=== PATIENT | female | born 1930 | race Caucasian/White ===

== ENCOUNTER 2016-11-21 19:41 | Emergency (ER) | payer OTHER, MEDICARE ==
[~2016-11-21] VITALS: Ht 157.5 cm; Wt 87.1 kg
[~2016-11-21 19:41] MED LIST: ALBUTEROL2.5 MG/31 INH; AMITRIPTYLINE H25 M2 PO; APAP500 PO; COL-RITE50 MG PO; COUMADIN 5 MG TA5 M1 PO; DIOVAN160 MG PO; FAMOTIDINE20 MG; K-DUR 20 MEQ T20 MEQ; K-DUR 20 MEQ T20 MEQ PO; KLOR-CON 10 ER10 MEQ PO; LASIX 40 MG TAB40 M1 PO; LEVAQUIN 500 M500 M2 PO; LEVOTHROID50 MCG PO; LIDODERM 5%1 PATC1 TOP; LOPRESSOR 50 MG50 M1 PO; MELATONIN5 M1 PO; NEXIUM40 MG PO; TRAMADOL 50 MG50 MG PO; VITAMIN D-32000 UNIT PO; VITAMIN D31000 UNI2 PO
[2016-11-21] MEDS ORDERED: LOPRESSOR50 PO (19:54)
[2016-11-21] MEDS ORDERED: COLACE100 MG PO (19:55)
== END 2016-11-21 22:24 | disposition home or self-care (01) ==
LOC: ER 19:41
DX: M25.552 Pain in left hip (principal); J44.9 Chronic obstructive pulmonary disease, unspecified; F41.9 Anxiety disorder, unspecified; I10 Essential (primary) hypertension; Z90.710 Acquired absence of both cervix and uterus; Z98.890 Other specified postprocedural states; Z88.1 Allergy status to other antibiotic agents; Z88.5 Allergy status to narcotic agent; Z88.8 Allergy status to other drugs, medicaments and biological substances; F10.99 Alcohol use, unspecified with unspecified alcohol-induced disorder

== ENCOUNTER → 2017-04-22 | Outpatient (CLI) | payer OTHER, MEDICARE ==
[~2017-04-22] MED LIST changes: +COLACE100 MG PO; +LOPRESSOR50 PO
== END ==
LOC: CAT 09:37
DX: R91.8 Other nonspecific abnormal finding of lung field (principal)

== ENCOUNTER 2017-05-24 12:31 | Inpatient (IN) | payer OTHER, MEDICARE ==
[~2017-05-24] VITALS: Ht 157.5 cm; Wt 92.8 kg
--- NOTE | ~2017-05-24 | D ---
[facility] [place] [address] DISCHARGE SUMMARY Name: ARTEM SHEFFIELD Room #: 208-P [facility] IN M.R.#: [id number] Admission: 05/24/17 Attend Phys: Chano Rome Discharge: 06/04/17 Date of : 28 Report #: [id number] THIS REPORT FOR: //name// CC: Dane Ricardo Maixmino FINAL DIAGNOSES: 1. Pulmonary hypertension. 2. Atrial fibrillation. 3. Metabolic encephalopathy. 4. Chronic anticoagulation. 5. Urinary tract infection. HOSPITAL COURSE: The patient was admitted with shortness of breath. She has known pulmonary hypertension and she required the use of BiPAP and high-flow oxygen due to severe hypoxia. Pulmonary and cardiology evaluated her. Ultimately, the finding was that she had a right to left intracardiac shunt causing severe hypoxia. Given her advanced age and the comorbidities, she is not a surgical candidate, therefore, she was treated symptomatically. She had a minor gout flare of the right foot and steroids were added. Urine culture grew bacteria and antibiotics were ordered. At one point, palliative care considered; however, her condition seemed to stabilize and slightly improved some the last 3 hospital days, she was more awake and alert, on oxygen around 10-15 liters nasal cannula with sats in the mid to upper 80s. She was getting out of bed, working with therapy, talking and visiting with her family and eating better. PHYSICAL EXAMINATION: GENERAL: On the day of discharge, she was awake and alert. VITAL SIGNS: Stable. LUNGS: Clear. HEART: Regular. ABDOMEN: Soft, normoactive bowel sounds. EXTREMITIES: No edema. DISPOSITION: I prepared all the discharge orders, prescriptions, and plans, discussed with the family and social research assistant and made arrangements for her transfer to [facility] facility for ongoing pulmonary care. She will continue do not resuscitate status and overall is a poor prognosis due to her underlying condition. <ELECTRONICALLY SIGNED> By: Reid Abebe MD 06/06/17 0839 1240 [id number] Reid Abebe MD /nt
--- NOTE | ~2017-05-24 | 2DMMODE ---
[facility] [address] [place] [address] 2 D/M-MODE ECHOCARDIOGRAM Name: ARTEM SHEFFIELD Room #: 302-P ADM IN M.R.#: [id number] Admission: 05/24/17 Attend Phys: Dane Willis Discharge: Date of : 28 Date of Service: 05/26/17 1307 Report #: [id number] THIS REPORT FOR: //name// APPROVED REPORT Study performed: 05/26/2017 10:45:26 EXAM: Comprehensive 2D, Doppler, and color-flow Echocardiogram Patient Location: Bedside Room #: 302 Other Information Study Quality: Adequate Technically limited study due to body habitus. Indications COPD Pulmonary Hypertension Atrial Fibrillation Hypertension/HDD Echo Enhancing Agent Indication: Rule out Shunt Agent(s) / Amount(s) Used: Agitated Saline 6 cc 2D Dimensions RVDd: 50.47 mm LVEF(%): 58.47 (>50%) IVSd: 11.32 (7-11mm) LVOT Diam: 17.53 (18-24mm) LVDd: 42.61 mm PWd: 11.78 (7-11mm) Ascending Ao: 25.05 (22-36mm) LVDs: 29.56 (25-40mm) Aortic Root: 28.87 mm IVC: 29.00 mm Murphy's LVEF: 58.47 % Volumes Left Atrial Volume (Systole) Single Plane 4CH: 74.19 mL Single Plane 2CH: 54.06 mL LA ESV Index: 35.00 mL/m2 Aortic Valve AoV Peak Roge.: 1.16 m/s AO Peak Gr.: 5.39 mmHg LVOT Max P.72 mmHg LVOT Max V: 0.96 m/s [facility] [place] [address] [place] [address] 2 D/M-MODE ECHOCARDIOGRAM Name: ARTEM SHEFFIELD Room #: 302-[facility] IN ..#: [id number] Admission: 05/24/17 Attend Phys: Dane Willis Discharge: Date of : 28 Date of Service: 05/26/17 1307 Report #: [id number] JUAN Vmax: 2.00 cm2 Mitral Valve MV Decel. Time: 192.89 ms MV E Max Roge.: 1.09 m/s IVRT: 65.74 ms Pulmonary Valve PV Peak Roge.: 0.73 m/s PV Peak Gr.: 2.11 mmHg Tricuspid Valve TR Peak Roge.: 2.50 m/s RAP Estimate: 15.00 mmHg TR Peak Gr.: 25.04 mmHg Left Ventricle The left ventricle is normal size. There is normal LV segmental wall motion. There is normal left ventricular wall thickness. The overall left ventricular systolic function appears normal. LVEF is 55-60%. This study is not technically sufficient to allow evaluation of the LV diastolic function due to atrial fibrillation. Right Ventricle Right ventricle is dilated. The right ventricular systolic function is normal. Atria Left atrium is dilated. Contrast bubble injection consistent with right to left shunting. Right atrium is severely dilated. Aortic Valve The aortic valve is mildly sclerotic. Mild moderate aortic regurgitation. There is no aortic valvular stenosis. Mitral Valve Mild mitral annular calcification Trace mitral regurgitation. No evidence of mitral valve stenosis. Tricuspid Valve The tricuspid valve is normal in structure. Severe tricuspid regurgitation. Pulmonic Valve Pulmonic valve is not well visualized. Great Vessels The aortic root is normal in size. IVC is dilated and collapses [facility] [address] [place] [address] 2 D/M-MODE ECHOCARDIOGRAM Name: ARTEM SHEFFIELD Room #: 302-P ADM IN M.R.#: [id number] Admission: 05/24/17 Attend Phys: Dane Willis Discharge: Date of : 28 Date of Service: 05/26/17 1307 Report #: [id number] <50% with inspiration. Pericardium There is no pericardial effusion. <Conclusion> The overall left ventricular systolic function appears normal. LVEF is 55-60%. Normal LV segmental wall motion. Left atrium is dilated. Right atrium is severely dilated. Right ventricle is dilated. The aortic valve is mildly sclerotic. No aortic valvular stenosis. Mild-moderate regurgitation. Mild mitral annular calcification Trace mitral regurgitation. Severe tricuspid regurgitation. There is no pericardial effusion. Pulmonary artery pressure of 35mmHg Contrast bubble injection consistent with right to left shunting. <ELECTRONICALLY SIGNED> By: Ga Benavidez MD, [facility] 05/26/17 1307 06 06 Ga Benavidez MD, FAC /INF
--- NOTE | ~2017-05-24 | EKG ---
[address] [address] ELECTROCARDIOGRAM REPORT Name: ARTEM SHEFFIELD Room #: 302-P ADM IN M.R.#: [id number] Admission: 05/24/17 Attend Phys: Chano Rome Discharge: Date of : 28 Report #: [id number] THIS REPORT FOR: //name// 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
[2017-05-24 12:32] VITALS: BP 114/62
[2017-05-24 13:35] LABS: ABSOLUTE NEUTROPHILS 2.7 thou/uL (1.4-8.2); BASOPHILS 2.4 % (0.0-2.0); HEMATOCRIT 46.5 % (37.0-47.0); LYMPHOCYTES 31.1 % (24.0-44.0); MCH 36.2 pg (26.0-34.0); MCHC 34.4 g/dL (28.0-37.0); MCV 105.4 fL (80.0-100.0); MONOCYTES 7.6 % (1.0-8.0); PLATELET COUNT 200 thou/uL (150-400); POLYS 55.9 % (36.0-66.0); RBC 4.41 mil/uL (4.20-5.00); RDW 15.4 % (10.5-14.5); WBC 4.9 thou/uL (4.0-11.0)
[2017-05-24 13:37] LABS: MANUAL DIFF NO
[2017-05-24 13:45] LABS: ANION GAP 9 mmol/L (7-16); BUN 22 mg/dL (7-18); CALCIUM 9.1 mg/dL (8.5-10.1); CHLORIDE 105 mmol/L (98-107); CO2 25 mmol/L (21-32); CREATININE 1.5 mg/dL (0.6-1.0); GLUCOSE 144 mg/dL (74-106); POTASSIUM 3.9 mmol/L (3.5-5.1); SODIUM 139 mmol/L (136-145)
[2017-05-24 13:49] LABS: ABG SAMPLE TYPE ARTERIAL; BE(vivo) -1.2 mmol/L (-2 to +3); HCO3 21.9 mmol/L (22.0-26.0); LACTATE 2.74 mmol/L (0.5-2.0); PCO2 32.8 mmHg (35.0-45.0); PO2 51.9 mmHg (80.0-100.0); STICK SITE R.BRACHIAL; pH 7.443 (7.360-7.450); sO2 88.5 % (92.0-98.0); tCO2 22.9 mmol/L (24.0-30.0)
[2017-05-24 13:54] LABS: INR 2.4; PROTIME 24.3 Seconds (9.3-11.4)
[2017-05-24] MEDS ORDERED: LEVOTHYROXINE0.05 MG PO (13:54)
[2017-05-24] MEDS ORDERED: DONEPEZIL HCL 55 M1 PO (13:55)
[2017-05-24 13:56] LABS: ALBUMIN 3.7 g/dL (3.4-5.0); ALKALINE PHOSPHATASE 176 U/L (46-116); NT-PRO BRAIN NAT PEPTIDE 865 pg/mL (<300); SGOT 21 U/L (15-37); SGPT 16 U/L (30-65); TOTAL BILIRUBIN 1.2 mg/dL (<0.1-1.0); TOTAL PROTEIN 7.2 g/dL (6.4-8.2); TROPONIN-I < 0.04 ng/mL (<0.04-0.07)
[2017-05-24] MEDS ORDERED: DIOVAN 80 MG TA80 M1 PO (13:56)
[2017-05-24 16:20] VITALS: BP 156/87
[2017-05-24 21:39] VITALS: BP 159/80
[2017-05-25 03:42] VITALS: BP 142/80
[2017-05-25 07:17] VITALS: BP 149/84
[2017-05-25 15:39] VITALS: BP 129/77
[2017-05-25 19:13] VITALS: BP 154/76
[2017-05-26 04:31] VITALS: BP 131/75
[2017-05-26 05:15] LABS: HEMATOCRIT 45.1 % (37.0-47.0); HEMOGLOBIN 15.6 gm/dL (12.0-15.0); MCH 36.2 pg (26.0-34.0); MCHC 34.5 g/dL (28.0-37.0); RBC 4.3 mil/uL (4.20-5.00); RDW 15.9 % (10.5-14.5); WBC 5.8 thou/uL (4.0-11.0)
[2017-05-26 05:24] LABS: CALCIUM 8.9 mg/dL (8.5-10.1); CREATININE 1.2 mg/dL (0.6-1.0); POTASSIUM 4.4 mmol/L (3.5-5.1)
[2017-05-26 07:20] LABS: ABG SAMPLE TYPE ARTERIAL; HCO3 23.3 mmol/L (22.0-26.0); LACTATE 1.69 mmol/L (0.5-2.0); O2(CT) 19.4 mL/dL (15.0-23.0); O2Hb 86.6 % (92.0-98.0); PCO2 37.9 mmHg (35.0-45.0); pH 7.407 (7.360-7.450); sO2 88.4 % (92.0-98.0); tCO2 24.5 mmol/L (24.0-30.0)
[2017-05-26 07:21] LABS: PO2 53.9 mmHg (80.0-100.0); STICK SITE R.RADIAL
[2017-05-26 07:43] VITALS: BP 131/68
[2017-05-26 14:35] LABS: INR 2.5; PROTIME 25.3 Seconds (9.3-11.4)
[2017-05-26 17:47] VITALS: BP 122/58
[2017-05-26 20:00] VITALS: BP 118/61
[2017-05-27] VITALS (18 sets, daily range): BP systolic 104–156; BP diastolic 58–104
[2017-05-27 04:34] LABS: HEMATOCRIT 46.1 % (37.0-47.0); HEMOGLOBIN 15.8 gm/dL (12.0-15.0); MCH 36.2 pg (26.0-34.0); MCHC 34.3 g/dL (28.0-37.0); MCV 105.6 fL (80.0-100.0); RBC 4.37 mil/uL (4.20-5.00); RDW 15.4 % (10.5-14.5); WBC 5.4 thou/uL (4.0-11.0)
[2017-05-27 04:55] LABS: CALCIUM 9.3 mg/dL (8.5-10.1); CREATININE 1.3 mg/dL (0.6-1.0); POTASSIUM 4.3 mmol/L (3.5-5.1)
[2017-05-27 05:29] LABS: FOLIC ACID 6.8 ng/mL (8.6-58.9); TSH 4.411 uIU/mL (0.358-3.740)
[2017-05-27 10:57] LABS: INR 2.5; PROTIME 25.4 Seconds (9.3-11.4)
[2017-05-27 11:46] LABS: URINE BILIRUBIN NEGATIVE (Negative); URINE BLOOD 1+ (Negative); URINE COLOR YELLOW; URINE GLUCOSE-RANDOM* NEGATIVE (Negative); URINE KETONES NEGATIVE (Negative); URINE LEUKOCYTES-REFLEX 1+ (Negative); URINE PROTEIN (DIPSTICK) NEGATIVE (Negative); URINE SPECIFIC GRAVITY <= 1.005 (1.003-1.035); URINE UROBILINOGEN 0.2 E.U./dl (0.2-1.0)
[2017-05-27 12:19] LABS: CASTS None Seen /LPF (None Seen); CRYSTALS None Seen /LPF (None Seen); SQUAMOUS None Seen /LPF (0-3); URINE WBC-REFLEX 6-15 Few /HPF (0-5)
[2017-05-27 12:22] LABS: URINE RBC None Seen /HPF (0-2)
[2017-05-28] VITALS (24 sets, daily range): BP systolic 105–146; BP diastolic 54–95
[2017-05-29] VITALS (11 sets, daily range): BP systolic 106–150; BP diastolic 59–102
[2017-05-29 04:49] LABS: ABSOLUTE NEUTROPHILS 5.2 thou/uL (1.4-8.2); BASOPHILS 1.1 % (0.0-2.0); EOSINOPHILS 2.2 % (0.0-3.0); HEMATOCRIT 48.8 % (37.0-47.0); HEMOGLOBIN 16.5 gm/dL (12.0-15.0); LYMPHOCYTES 12.5 % (24.0-44.0); MCH 35.6 pg (26.0-34.0); MCHC 33.7 g/dL (28.0-37.0); MCV 105.6 fL (80.0-100.0); MONOCYTES 10.4 % (1.0-8.0); PLATELET COUNT 221 thou/uL (150-400); POLYS 73.8 % (36.0-66.0); RBC 4.63 mil/uL (4.20-5.00); RDW 15.5 % (10.5-14.5); WBC 7.1 thou/uL (4.0-11.0)
[2017-05-29 04:54] LABS: MANUAL DIFF NO
[2017-05-29 04:58] LABS: INR 2.1; PROTIME 21.2 Seconds (9.3-11.4)
[2017-05-29 05:01] LABS: ALBUMIN 3.2 g/dL (3.4-5.0); CALCIUM 9.2 mg/dL (8.5-10.1); CREATININE 1.3 mg/dL (0.6-1.0); MAGNESIUM 1.7 mg/dL (1.8-2.4); POTASSIUM 4.3 mmol/L (3.5-5.1); TOTAL BILIRUBIN 1.5 mg/dL (<0.1-1.0)
[2017-05-29 05:44] LABS: ABG SAMPLE TYPE ARTERIAL; BE(vivo) 1.7 mmol/L (-2 to +3); HCO3 24.4 mmol/L (22.0-26.0); LACTATE 1.68 mmol/L (0.5-2.0); O2(CT) 17.5 mL/dL (15.0-23.0); PCO2 33.3 mmHg (35.0-45.0); pH 7.483 (7.360-7.450); sO2 74.8 % (92.0-98.0); tCO2 25.4 mmol/L (24.0-30.0)
[2017-05-29 05:45] LABS: O2Hb 72.8 % (92.0-98.0); PO2 36.5 mmHg (80.0-100.0); STICK SITE RRA
[2017-05-30 00:45] VITALS: BP 134/78
[2017-05-30 04:00] VITALS: BP 149/97
[2017-05-30 04:20] LABS: INR 2.3; PROTIME 22.9 Seconds (9.3-11.4)
[2017-05-30 04:26] LABS: CALCIUM 9.2 mg/dL (8.5-10.1); CREATININE 1.4 mg/dL (0.6-1.0)
[2017-05-30 07:40] VITALS: BP 152/106
[2017-05-30 20:00] VITALS: BP 153/89
[2017-05-31 04:00] VITALS: BP 127/59
[2017-05-31 20:28] LABS: ABSOLUTE NEUTROPHILS 5.4 thou/uL (1.4-8.2); BASOPHILS 1.3 % (0.0-2.0); EOSINOPHILS 3.1 % (0.0-3.0); HEMATOCRIT 51.2 % (37.0-47.0); HEMOGLOBIN 17.3 gm/dL (12.0-15.0); LYMPHOCYTES 18.6 % (24.0-44.0); MCH 36.1 pg (26.0-34.0); MCHC 33.8 g/dL (28.0-37.0); MCV 106.9 fL (80.0-100.0); MONOCYTES 7.9 % (1.0-8.0); PLATELET COUNT 247 thou/uL (150-400); POLYS 69.1 % (36.0-66.0); RBC 4.79 mil/uL (4.20-5.00); RDW 15.2 % (10.5-14.5); WBC 7.8 thou/uL (4.0-11.0)
[2017-05-31 20:39] LABS: MANUAL DIFF NO
[2017-05-31 20:47] LABS: CALCIUM 9.5 mg/dL (8.5-10.1); CREATININE 1.5 mg/dL (0.6-1.0); POTASSIUM 3.9 mmol/L (3.5-5.1)
[2017-05-31 20:51] LABS: TOTAL BILIRUBIN 1.9 mg/dL (<0.1-1.0); TOTAL PROTEIN 7.3 g/dL (6.4-8.2); URIC ACID* 10.6 mg/dL (2.6-7.2)
[2017-05-31 21:16] VITALS: BP 183/99
[2017-05-31 21:46] LABS: ABG SAMPLE TYPE ARTERIAL; BE(vivo) 0.1 mmol/L (-2 to +3); HCO3 24.6 mmol/L (22.0-26.0); LACTATE 1.54 mmol/L (0.5-2.0); O2(CT) 20.7 mL/dL (15.0-23.0); O2Hb 84.8 % (92.0-98.0); PCO2 39.6 mmHg (35.0-45.0); PO2 51.8 mmHg (80.0-100.0); pH 7.411 (7.360-7.450); sO2 87.1 % (92.0-98.0); tCO2 25.8 mmol/L (24.0-30.0)
[2017-05-31 21:47] LABS: STICK SITE L.RADIAL
[2017-06-01 03:44] VITALS: BP 136/67
[2017-06-01 09:30] VITALS: BP 150/68
[2017-06-01 10:55] LABS: PROTIME 40.2 Seconds (9.3-11.4)
[2017-06-01 20:22] VITALS: BP 132/62
[2017-06-02 04:43] VITALS: BP 131/63
[2017-06-02 08:00] VITALS: BP 152/94
[2017-06-02 11:55] VITALS: BP 151/78
[2017-06-02 14:18] LABS: HEMATOCRIT 50.3 % (37.0-47.0); HEMOGLOBIN 17.1 gm/dL (12.0-15.0); MCH 36.1 pg (26.0-34.0); MCHC 33.9 g/dL (28.0-37.0); MCV 106.3 fL (80.0-100.0); RBC 4.73 mil/uL (4.20-5.00); RDW 14.9 % (10.5-14.5)
[2017-06-02 14:26] LABS: CALCIUM 9.4 mg/dL (8.5-10.1); CREATININE 1.3 mg/dL (0.6-1.0); POTASSIUM 3.9 mmol/L (3.5-5.1)
[2017-06-02 14:30] LABS: INR 2.6; PROTIME 26.4 Seconds (9.3-11.4)
[2017-06-02 16:05] VITALS: BP 148/90
[2017-06-02 20:03] VITALS: BP 153/107
[2017-06-03 03:40] LABS: INR 2.2; PROTIME 22.6 Seconds (9.3-11.4)
[2017-06-03 03:42] VITALS: BP 148/69
[2017-06-03 03:45] LABS: HEMATOCRIT 50.6 % (37.0-47.0); HEMOGLOBIN 17.3 gm/dL (12.0-15.0); MCH 36.2 pg (26.0-34.0); MCHC 34.2 g/dL (28.0-37.0); MCV 105.7 fL (80.0-100.0); RBC 4.79 mil/uL (4.20-5.00); RDW 14.9 % (10.5-14.5); WBC 10.5 thou/uL (4.0-11.0)
[2017-06-03 03:47] LABS: ALBUMIN 3.1 g/dL (3.4-5.0); CALCIUM 9.5 mg/dL (8.5-10.1); CREATININE 1.3 mg/dL (0.6-1.0); POTASSIUM 4.1 mmol/L (3.5-5.1); TOTAL BILIRUBIN 1.2 mg/dL (<0.1-1.0); TOTAL PROTEIN 7.5 g/dL (6.4-8.2)
[2017-06-03 07:45] VITALS: BP 146/78
[2017-06-03] MEDS ORDERED: LOPRESSOR25 PO (09:54)
[2017-06-03] MEDS ORDERED: ALBUTEROL2.5 MG/0.5 INH (09:54)
[2017-06-03] MEDS ORDERED: COUMADIN 2 MG TA2 M1 PO (09:54)
[2017-06-03] MEDS ORDERED: SOLU-MEDRO40 MG/1 M2 IV PUSH (09:55)
[2017-06-03] MEDS ORDERED: MELATONIN5 M1 PO (09:55)
[2017-06-03] MEDS ORDERED: UNASYN 1.5 GM1.5 GM IJ (09:56)
[2017-06-03 11:53] VITALS: BP 144/104
[2017-06-03 15:45] VITALS: BP 151/89
[2017-06-03 19:40] VITALS: BP 166/104
[2017-06-04 07:55] VITALS: BP 151/82
[2017-06-04 10:05] LABS: INR 1.5; PROTIME 15.5 Seconds (9.3-11.4)
[2017-06-04 11:40] VITALS: BP 143/98
[2017-06-04] MEDS ORDERED: SEROQUEL 25 MG25 M1 PO (12:37)
[2017-06-04 15:40] VITALS: BP 162/108
== END 2017-06-04 17:00 | DRG 314 ==
LOC: ER 12:31 → EROBS 15:07 → 3N 15:07 → ICU 05-27 10:23 → 2N 05-29 10:39
PROVIDERS: Family Medicine; Internal Medicine Geriatric Medicine; Internal Medicine Pulmonary Disease; Physician Assistant
PROC: 5A09457 Assistance with Respiratory Ventilation, 24-96 Consecutive Hours, Continuous Positive Airway Pressure (ICD-10-PCS; principal; 2017-05-27)
DX: I27.2 Other secondary pulmonary hypertension (principal); J96.21 Acute and chronic respiratory failure with hypoxia; G93.41 Metabolic encephalopathy; R65.11 Systemic inflammatory response syndrome (SIRS) of non-infectious origin with acute organ dysfunction; N39.0 Urinary tract infection, site not specified; E66.2 Morbid (severe) obesity with alveolar hypoventilation; G47.33 Obstructive sleep apnea (adult) (pediatric); E03.9 Hypothyroidism, unspecified; J44.9 Chronic obstructive pulmonary disease, unspecified; Z66 Do not resuscitate; M19.90 Unspecified osteoarthritis, unspecified site; F41.9 Anxiety disorder, unspecified; Z51.5 Encounter for palliative care; I25.10 Atherosclerotic heart disease of native coronary artery without angina pectoris; I87.2 Venous insufficiency (chronic) (peripheral); I73.9 Peripheral vascular disease, unspecified; Z96.653 Presence of artificial knee joint, bilateral; I48.2 Chronic atrial fibrillation; I12.9 Hypertensive chronic kidney disease with stage 1 through stage 4 chronic kidney disease, or unspecified chronic kidney disease; N18.9 Chronic kidney disease, unspecified; D75.1 Secondary polycythemia; R91.1 Solitary pulmonary nodule; G60.9 Hereditary and idiopathic neuropathy, unspecified; F03.90 Unspecified dementia, unspecified severity, without behavioral disturbance, psychotic disturbance, mood disturbance, and anxiety; R41.0 Disorientation, unspecified; G89.29 Other chronic pain; K59.00 Constipation, unspecified; M10.471 Other secondary gout, right ankle and foot; Z91.14 Patient's other noncompliance with medication regimen; Z90.710 Acquired absence of both cervix and uterus; Z87.01 Personal history of pneumonia (recurrent); Z87.440 Personal history of urinary (tract) infections; Z79.01 Long term (current) use of anticoagulants; Z88.6 Allergy status to analgesic agent; Z88.8 Allergy status to other drugs, medicaments and biological substances; Z79.899 Other long term (current) drug therapy; Z68.37 Body mass index [BMI] 37.0-37.9, adult; Z82.0 Family history of epilepsy and other diseases of the nervous system; Z90.49 Acquired absence of other specified parts of digestive tract
CPT/HCPCS: 10078; 10081; 10795